=== PATIENT | female | born 1945 | race Caucasian/White ===

== ENCOUNTER 2018-02-28 09:03 | Outpatient (CLI) | payer MEDICARE ==
--- NOTE | 2018-02-28 11:11 | CT ---
CT CHEST WITHOUT CONTRAST: Date: 02/28/18 HISTORY: Lung nodule. FINDINGS: Comparison made with low dose CT scan of chest dated 01/30/17 from [facility] . Numerous tiny lung nodules are again seen and stable. The largest noncalcified nodule is in the left lung base, measuring 5.0 mm and stable. Calcified nodule in the left lower lobe is again seen. There are calcified lymph nodes in the left hilum. Vascular calcifications are present without evidence of aneurysmal dilatation of the thoracic aorta. No pleural or pericardial effusions are seen. Emphysematous changes are again noted bilaterally. Ther e are degenerative changes in the spine. IMPRESSION: 1. Lung-RADS Category 2: Benign appearance or behavior. Continue annual screening with low density CT scan in 12 months. 2. Lung-RADS Category S: Negative. No new or known potentially significant incidental findings requ iring urgent additional evaluation. POS: JENI
== END 2018-02-28 09:04 | disposition home or self-care (01) ==
LOC: CT 09:03
PROVIDERS: ATTEND Internal Medicine
DX: J44.9 Chronic obstructive pulmonary disease, unspecified (principal); R91.1 Solitary pulmonary nodule; F17.200 Nicotine dependence, unspecified, uncomplicated
CPT/HCPCS: 71250

== ENCOUNTER 2019-03-17 09:11 | Outpatient (CLI) | payer MEDICARE ==
--- NOTE | 2019-03-17 13:32 | CT ---
CT CHEST WITHOUT CONTRAST: DATE: 03/17/2019. PROVIDED CLINICAL HISTORY: Lung nodule. FINDINGS: Comparison is made with the examinations performed 01/30/2017 and 02/28/2018. The heart, pericardium, and great vessels are suboptimally evaluated in the absence of IV contrast ma terial. Vascular calcification including coronary calcium is demonstrated. No evidence for thoracic lymph node enlargement with limitations due to lack of IV contrast. The appearance of the lung parenchyma is stable. Occasional sub-6 mm noncalcified pulmonary nodules. Emphysematous change. Dependent atelectatic change and subpleural cyst-like change involving the d ependent portions of each lung base similar to prior. No pleural fluid or pneumothorax apparent. The airway appears patent and of normal caliber. The visualized portions of the upper abdomen demonstrate no acute abnormality. The osseous structure s demonstrate no concerning lytic or blastic lesions. IMPRESSION: Stable exam. POS: OFF
== END 2019-03-17 09:12 | disposition home or self-care (01) ==
LOC: BICCT 09:11
PROVIDERS: ATTEND Internal Medicine
DX: R91.1 Solitary pulmonary nodule (principal)
CPT/HCPCS: 71250